=== PATIENT | male | born 1970 | race Hispanic/Latino ===

== ENCOUNTER 2024-01-22 12:10 | Inpatient (IN) | payer OTHER ==
[2024-01-22 13:07] LABS: ALT (SGPT) 18 U/L (8-55); AST (SGOT) 17 U/L (5-34); Alkaline Phosphatase 77 U/L (40-110); Anion Gap 14 mmol/L (10-20); BUN (Urea Nitrogen) 43 mg/dL (8.4-25.7); Bilirubin, Total 0.3 mg/dL (0.2-1.2); Calc. Creatinine Clearance 0 mL/min (70-130); Calcium 8.3 mg/dL (7.8-10.44); Carbon Dioxide 20 mmol/L (22-29); Chloride 104 mmol/L (98-107); Estimated GFR 39; Globulin 2.9 g/dL (2.4-3.5); Glucose 60 mg/dL (70-105); Lipase 13 U/L (8-78); Potassium 4.8 mmol/L (3.5-5.1); Protein, Total 5.9 g/dL (6.0-8.3); Sodium 133 mmol/L (136-145)
[2024-01-22 13:14] LABS: Troponin I Less than 0.010 ng/mL (< 0.028)
[2024-01-22 13:15] LABS: #Basophils 0.05 10x3/uL (0.0-0.2); #Eosinphils 0.31 10x3/uL (0.0-0.5); #Monocytes 0.86 10x3/uL (0.0-1.1); #Neutrophils 7.29 10x3/uL (1.5-8.4); %Basophils 0.5 % (0.0-2.0); %Eosinophils 2.9 % (0.0-6.0); %Lymphocytes 19.2 % (18.0-47.0); %Monocytes 8.1 % (0.0-10.0); Hematocrit 26.7 % (38.8-50.0); Hemoglobin 9.1 g/dL (13.5-17.5); Mean Corpuscular HGB CONC 34.1 g/dL (32.0-36.0); Mean Corpuscular Hemoglobin 28.6 pg (27.0-33.0); Mean Platelet Volume 12.3 fL (7.4-10.4); Platelet Count 208 10x3/uL (150-450); Red Blood Cell (RBC) Count 3.18 10x6/uL (4.32-5.72); White Blood Cell (WBC) Count 10.6 10x3/uL (3.5-10.5)
[2024-01-22] MEDS ORDERED: Furosemide 40 MG (4 mL) VIAL ONE (14:03)
[2024-01-22] MEDS ORDERED: Acetaminophen 650 MG Suppository PR PRN (16:04)
[2024-01-22] MEDS ORDERED: Ondansetron ODT 4 MG TAB PO PRN (16:04)
[2024-01-22] MEDS ORDERED: Calcium Carbonate 500 MG ChewTAB PO PRN (16:04)
[2024-01-22] MEDS ORDERED: Ondansetron PF 4 MG/2 ML Vial IVP PRN (16:04)
[2024-01-22] MEDS ORDERED: Dextrose 5% in Water 1,000 ML IV PRN (16:04)
[2024-01-22] MEDS ORDERED: HumaLOG 300 UNITS/3 ML VIAL SC PRN ×2 (16:04)
[2024-01-22] MEDS ORDERED: Senokot S 8.6-50 MG TAB PO PRN (16:04)
[2024-01-22] MEDS ORDERED: Dextrose 50% Abboject 50 ML SYRINGE SLOW IVP PRN (16:04)
[2024-01-22] MEDS ORDERED: Glucagon 1 MG/ML KIT IM PRN (16:04)
[2024-01-22 16:32] LABS: Magnesium 2.3 mg/dL (1.6-2.6)
[2024-01-22 16:58] VITALS: BMI 36.9
[2024-01-22] MEDS: Furosemide 20 MG (2 mL) VIAL SLOW IVP SCH (17:34)
[2024-01-22] MEDS: Sulfameth/Trimethoprim DS 800-160mg TAB PO SCH (21:46)
[2024-01-22] MEDS: Divalproex Sodium 250 MG (DR) TAB PO SCH (21:46)
[2024-01-22] MEDS: Acetaminophen 325 MG TAB PO PRN (21:46)
[2024-01-23] MEDS: Furosemide 40 MG (4 mL) VIAL SLOW IVP SCH (05:48)
[2024-01-23 06:08] LABS: Anion Gap 16 mmol/L (10-20); BUN (Urea Nitrogen) 42 mg/dL (8.4-25.7); Calc. Creatinine Clearance 65 mL/min (70-130); Calcium 8.6 mg/dL (7.8-10.44); Carbon Dioxide 18 mmol/L (22-29); Chloride 106 mmol/L (98-107); Estimated GFR 39; Glucose 120 mg/dL (70-105); Iron 65 ug/dL (65-175); Iron Binding Capacity, Total 301 mcg/dL (261-462); Potassium 5.5 mmol/L (3.5-5.1); Sodium 134 mmol/L (136-145)
[2024-01-23 06:10] LABS: #Basophils 0.04 10x3/uL (0.0-0.2); #Eosinphils 0.23 10x3/uL (0.0-0.5); #Monocytes 0.67 10x3/uL (0.0-1.1); #Neutrophils 5.52 10x3/uL (1.5-8.4); %Basophils 0.5 % (0.0-2.0); %Eosinophils 2.8 % (0.0-6.0); %Lymphocytes 19.9 % (18.0-47.0); %Monocytes 8.3 % (0.0-10.0); %Neutrophils 68.3 % (40.0-75.0); Hematocrit 27.6 % (38.8-50.0); Hemoglobin 9.1 g/dL (13.5-17.5); Mean Corpuscular Hemoglobin 29.1 pg (27.0-33.0); Mean Corpuscular Volume 88.2 fL (81.2-95.1); Mean Platelet Volume 12.1 fL (7.4-10.4); Platelet Count 195 10x3/uL (150-450); RBC Distribution Width 13.3 % (11.5-14.5); Red Blood Cell (RBC) Count 3.13 10x6/uL (4.32-5.72); White Blood Cell (WBC) Count 8.1 10x3/uL (3.5-10.5)
[2024-01-23] MEDS: Aspirin 81 mg Enteric Coated Tablet PO SCH (08:55)
[2024-01-23] MEDS: FLUoxetine HCl 20 MG CAP PO SCH (08:55)
[2024-01-23] MEDS: Enoxaparin 40 MG (0.4 mL) SYRINGE SC SCH (08:55)
[2024-01-23] MEDS: glipiZIDE 10 MG TAB PO SCH (17:25)
[2024-01-23] MEDS: Terazosin HCl 1 MG CAP PO SCH (20:28)
[2024-01-23] MEDS: Insulin NPH Human Isophane 100 UNITS/ML (10 ML VIAL) SQ SCH (20:30)
[2024-01-24 08:03] LABS: #Basophils 0.05 10x3/uL (0.0-0.2); #Eosinphils 0.41 10x3/uL (0.0-0.5); #Monocytes 0.77 10x3/uL (0.0-1.1); #Neutrophils 4.46 10x3/uL (1.5-8.4); %Basophils 0.6 % (0.0-2.0); %Eosinophils 5.1 % (0.0-6.0); %Lymphocytes 28.8 % (18.0-47.0); %Monocytes 9.6 % (0.0-10.0); %Neutrophils 55.8 % (40.0-75.0); Hematocrit 27.8 % (38.8-50.0); Hemoglobin 9.1 g/dL (13.5-17.5); Mean Corpuscular HGB CONC 32.7 g/dL (32.0-36.0); Mean Corpuscular Volume 85.5 fL (81.2-95.1); Mean Platelet Volume 11.8 fL (7.4-10.4); Platelet Count 226 10x3/uL (150-450); RBC Distribution Width 13.1 % (11.5-14.5); Red Blood Cell (RBC) Count 3.25 10x6/uL (4.32-5.72)
[2024-01-24] MEDS: glipiZIDE 10 MG TAB PO SCH (08:56)
[2024-01-24] MEDS ORDERED: FLUoxetine HCl 20 MG CAP PO SCH (09:00)
[2024-01-24 09:31] LABS: Anion Gap 15 mmol/L (10-20); BUN (Urea Nitrogen) 47 mg/dL (8.4-25.7); Calc. Creatinine Clearance 57 mL/min (70-130); Carbon Dioxide 21 mmol/L (22-29); Chloride 106 mmol/L (98-107); Estimated GFR 35; Potassium 5.3 mmol/L (3.5-5.1); Sodium 137 mmol/L (136-145)
[2024-01-24 09:32] LABS: Glucose 69 mg/dL (70-105)
[2024-01-24] MEDS: Insulin NPH Human Isophane 100 UNITS/ML (10 ML VIAL) SQ SCH (10:02)
[2024-01-24] MEDS ORDERED: Loratadine 10 MG TAB PO PRN (17:01)
[2024-01-25 04:45] LABS: #Basophils 0.05 10x3/uL (0.0-0.2); #Eosinphils 0.26 10x3/uL (0.0-0.5); #Monocytes 0.78 10x3/uL (0.0-1.1); #Neutrophils 7.96 10x3/uL (1.5-8.4); %Basophils 0.5 % (0.0-2.0); %Eosinophils 2.5 % (0.0-6.0); %Lymphocytes 12.2 % (18.0-47.0); %Monocytes 7.5 % (0.0-10.0); Hematocrit 30.6 % (38.8-50.0); Hemoglobin 9.9 g/dL (13.5-17.5); Mean Corpuscular HGB CONC 32.4 g/dL (32.0-36.0); Mean Corpuscular Volume 86.7 fL (81.2-95.1); Mean Platelet Volume 11.8 fL (7.4-10.4); Platelet Count 240 10x3/uL (150-450); RBC Distribution Width 13.2 % (11.5-14.5); Red Blood Cell (RBC) Count 3.53 10x6/uL (4.32-5.72); White Blood Cell (WBC) Count 10.3 10x3/uL (3.5-10.5)
[2024-01-25 05:03] LABS: Anion Gap 14 mmol/L (10-20); BUN (Urea Nitrogen) 44 mg/dL (8.4-25.7); Calc. Creatinine Clearance 50 mL/min (70-130); Calcium 9.3 mg/dL (7.8-10.44); Carbon Dioxide 23 mmol/L (22-29); Chloride 104 mmol/L (98-107); Estimated GFR 30; Glucose 109 mg/dL (70-105); Potassium 5.7 mmol/L (3.5-5.1); Sodium 135 mmol/L (136-145)
[2024-01-25] MEDS ORDERED: Albumin 25% 25 GM (100 mL) BOT IVPB SCH (09:00)
[2024-01-25] MEDS ORDERED: Furosemide 40 MG (4 mL) VIAL SLOW IVP SCH (09:00)
[2024-01-25] MEDS: Calcium Gluc 4.6 MEQ/10 ML (100 MG/ML) SLOW IVP SCH (09:16)
[2024-01-25] MEDS: Polyethylene Glycol 3350 17 GM Packet PO PRN (09:17)
[2024-01-25] MEDS: Albumin 25% 25 GM (100 mL) BOT IVPB SCH (09:17)
[2024-01-26 08:55] LABS: Critical Call Chemistry NUR.SL11 @0839; Potassium 6.4 mmol/L (3.5-5.1)
[2024-01-26] MEDS: Sodium Polystyrene Sulfonate 15 GM (60 mL) BOT PO SCH ×2 (09:32→12:22)
[2024-01-26] MEDS: Calcium Gluc 4.6 MEQ/10 ML (100 MG/ML) SLOW IVP SCH (09:33)
[2024-01-26] MEDS: LOKELMA 10 GM PACKET PO SCH (09:55)
[2024-01-26 11:09] LABS: Anion Gap 15 mmol/L (10-20); BUN (Urea Nitrogen) 39 mg/dL (8.4-25.7); Calc. Creatinine Clearance 58 mL/min (70-130); Calcium 9.5 mg/dL (7.8-10.44); Carbon Dioxide 24 mmol/L (22-29); Chloride 105 mmol/L (98-107); Estimated GFR 35; Glucose 106 mg/dL (70-105); Sodium 138 mmol/L (136-145)
[2024-01-26] MEDS: Albumin 25% 25 GM (100 mL) BOT IVPB SCH (12:22)
[2024-01-26] MEDS: Insulin NPH Human Isophane 100 UNITS/ML (10 ML VIAL) SQ SCH (20:54)
[2024-01-26 21:09] LABS: Anion Gap 16 mmol/L (10-20); BUN (Urea Nitrogen) 35 mg/dL (8.4-25.7); Calc. Creatinine Clearance 64 mL/min (70-130); Calcium 9.7 mg/dL (7.8-10.44); Carbon Dioxide 22 mmol/L (22-29); Chloride 108 mmol/L (98-107); Estimated GFR 40; Glucose 196 mg/dL (70-105); Potassium 5.1 mmol/L (3.5-5.1); Sodium 141 mmol/L (136-145)
[2024-01-27 03:54] LABS: Anion Gap 15 mmol/L (10-20); BUN (Urea Nitrogen) 34 mg/dL (8.4-25.7); Calc. Creatinine Clearance 74 mL/min (70-130); Calcium 9.5 mg/dL (7.8-10.44); Carbon Dioxide 20 mmol/L (22-29); Chloride 111 mmol/L (98-107); Estimated GFR 48; Glucose 111 mg/dL (70-105); Potassium 4.8 mmol/L (3.5-5.1); Sodium 141 mmol/L (136-145)
[2024-01-27] MEDS: Amlodipine 10 MG TAB PO SCH (08:30)
[2024-01-27] MEDS: Sodium Polystyrene Sulfonate 15 GM (60 mL) BOT PO SCH (09:47)
[2024-01-27] MEDS: hydrALAZINE 25 MG TAB PO SCH (19:46)
[2024-01-28 04:04] LABS: Anion Gap 13 mmol/L (10-20); BUN (Urea Nitrogen) 32 mg/dL (8.4-25.7); Calc. Creatinine Clearance 86 mL/min (70-130); Calcium 9.3 mg/dL (7.8-10.44); Carbon Dioxide 21 mmol/L (22-29); Chloride 108 mmol/L (98-107); Estimated GFR 58; Glucose 73 mg/dL (70-105); Potassium 4.3 mmol/L (3.5-5.1); Sodium 138 mmol/L (136-145)
[2024-01-28 07:33] VITALS: BP 162/84; TEMP 98.2
== END 2024-01-28 11:47 | disposition home or self-care (01) | DRG 683 ==
LOC: EEVIPCON 12:10 → CSHERS 12:10 → INTOOBSV 16:23 → CSHTELE 16:23 → OBSVTOIN 01-23 17:33
PROVIDERS: ADMIT Family Medicine; ATTEND Family Medicine
PROC: 30233J1 Transfusion of Nonautologous Serum Albumin into Peripheral Vein, Percutaneous Approach (ICD-10-PCS; principal; 2024-01-25)
DX: N17.9 Acute kidney failure, unspecified (principal); E87.1 Hypo-osmolality and hyponatremia; E87.70 Fluid overload, unspecified; E87.5 Hyperkalemia; I25.10 Atherosclerotic heart disease of native coronary artery without angina pectoris; E11.22 Type 2 diabetes mellitus with diabetic chronic kidney disease; N18.30 Chronic kidney disease, stage 3 unspecified; E66.9 Obesity, unspecified; I12.9 Hypertensive chronic kidney disease with stage 1 through stage 4 chronic kidney disease, or unspecified chronic kidney disease; E78.5 Hyperlipidemia, unspecified; I25.2 Old myocardial infarction; N40.0 Benign prostatic hyperplasia without lower urinary tract symptoms; F32.A Depression, unspecified; D64.9 Anemia, unspecified; Z95.1 Presence of aortocoronary bypass graft; Z68.31 Body mass index [BMI] 31.0-31.9, adult
CPT/HCPCS: 36415; 36416; 71045; 80048; 80053; 82728; 83540; 83550; 83690; 83735; 83880; 84443; 84484; 85025; 93005; 93306; 94760; 96374; J0612; J1650; J1815; J1940; P9047